=== PATIENT | male | born 1995 | race Caucasian/White ===

== ENCOUNTER 2018-08-24 12:48 | Emergency (ER) | payer OTHER ==
[2018-08-24 13:07] VITALS: BMI 29.2
--- NOTE | 2018-08-24 13:08 | ED PDOC ---
Arrival/HPI - General Time Seen by Provider: 08/24/18 12:50 Historian: Patient - History of Present Illness Narrative History of Present Illness (Text): 08/24/18 13:08 22 year old male, presents to the emergency department for psych evaluation. Patient states he is only here because "my parents think I'm crazy." As per ramy, who was present when patent was brought in, family was saying he was getting agitated at home. Patient states he does not want to be here, would like to go home. Of note, patient was presents in the emergency department for a psych evaluation on 04/11/14, he denies any psychiatric diagnosis. He denies any suicidal ideation, homicidal ideation, or any drug use. Patient has no somatic complaints at this time. Time/Duration: Prior to Arrival Symptom Onset: Gradual Symptom Course: Unchanged Activities at Onset: Light Context: Home Past Medical History - Provider Review Nursing Documentation Reviewed: Yes - Past History Past History: No Previous - Tetanus Immunization Tetanus Immunization: Up to Date - Cardiac Hx Hypertension: Yes (?) - Pulmonary Hx Tuberculosis: No - Neurological HX Cerebrovascular Accident: No Hx Seizures: No - Hematological/Oncological Hx Cancer: No - Genitourinary/Gynecological Hx Sexually Transmitted Diseases: No - Psychiatric Hx Substance Use: No - Surgical History Hx Tonsillectomy: Yes - Suicidal Assessment Feels Threatened In Home Enviroment: No Family/Social History - Physician Review Nursing Documentation Reviewed: Yes Family/Social History: No Known Family HX Smoking Status: Never Smoked Hx Alcohol Use: Yes Hx Substance Use: No Allergies/Home Meds Allergies/Adverse Reactions: Allergies No Known Allergies Allergy (Verified 12/12/16 19:48) Review of Systems - Review of Systems Constitutional: absent: Fevers Eyes: absent: Vision Changes ENT: absent: Hearing Changes, Sore Throat Respiratory: absent: SOB, Cough Cardiovascular: absent: Chest Pain Gastrointestinal: absent: Abdominal Pain, Diarrhea, Nausea, Vomiting Genitourinary Male: absent: Dysuria, Frequency Musculoskeletal: absent: Back Pain, Neck Pain Neurological: absent: Headache, Dizziness Endocrine: absent: Diaphoresis Hemo/Lymphatic: absent: Adenopathy Physical Exam Vital Signs Reviewed: Yes Vital Signs Temp Pulse Resp BP Pulse Ox 08/24/18 13:01 98.5 F 103 H 16 152/97 H 99 Temperature: Afebrile Blood Pressure: Hypertensive Pulse: Tachycardic Respiratory Rate: Normal Appearance: Positive for: Well-Appearing, Non-Toxic, Comfortable Pain Distress: None Mental Status: Positive for: Agitated - Systems Exam Head: Present: Atraumatic, Normocephalic Pupils: Present: PERRL Extroacular Muscles: Present: EOMI Conjunctiva: Present: Normal Mouth: Present: Moist Mucous Membranes Neck: Present: Normal Range of Motion Respiratory/Chest: Present: Clear to Auscultation, Good Air Exchange. No: Respiratory Distress, Accessory Muscle Use Cardiovascular: Present: Regular Rate and Rhythm, Normal S1, S2. No: Murmurs Abdomen: No: Tenderness, Distention, Peritoneal Signs Back: Present: Normal Inspection Upper Extremity: Present: Normal Inspection. No: Cyanosis, Edema Lower Extremity: Present: Normal Inspection. No: Edema Neurological: Present: GCS=15, CN II-XII Intact, Speech Normal Skin: Present: Warm, Dry, Normal Color. No: Rashes Psychiatric: Present: Alert, Oriented x 3, Agitated Medical Decision Making ED Course and Treatment: 08/24/18 13:08 Impression: 22 year old male who presents to the emergency department for psych evaluation. Plan: -- Labs -- EKG -- Chest X-ray -- Urinalysis -- Reassess and disposition Prior Visits: Notes and results from previous visits were reviewed. Progress Notes: 08/24/18 13:37 EKG shows NSR at 78bpm with incomplete RBBB. No somatic complaints 08/24/18 13:48 Chest X-ray reviewed shows: IMPRESSION: No active pulmonary disease. 08/24/18 14:58 Labs show elevated lfts. No complaint of abdominal pain. Elevated ck. IVF infusing. Patient evaluated by PES screener and will need to be screened by [facility] 08/24/18 17:28 CK elevated but decreasing after IV hydration and normal creatinine. Medically cleared pending psych 08/24/18 21:[address] sign out [address]. Lan as pending psych - Lab Interpretations I have reviewed the lab results: Yes - RAD Interpretation Radiology Orders: 08/24/18 13:04 CHEST PORTABLE [RAD] Stat - EKG Interpretation Interpreted by ED Physician: Yes Type: 12 lead EKG - Scribe Statement The provider has reviewed the documentation as recorded by the Scribe Emi Bebawy Provider Scribe Attestation: All medical record entries made by the Scribe were at my direction and personally dictated by me. I have reviewed the chart and agree that the record accurately reflects my personal performance of the history, physical exam, medical decision making, and the department course for this patient. I have also personally directed, reviewed, and agree with the discharge instructions and disposition. Disposition/Present on Arrival - Present on Arrival Any Indicators Present on Arrival: No History of DVT/PE: No History of Uncontrolled Diabetes: No Urinary Catheter: No History Surgical Site Infection Following: None - Disposition Have Diagnosis and Disposition been Completed?: No Diagnosis: Elevated LFTs, Elevated CK, Agitation Disposition Time: 21:00 Patient Problems: Current Active Problems Problem Status Onset Elevated LFTs Acute Elevated CK Acute Condition: FAIR Referrals: Oscar Ferrara MD [Primary Care Provider] - Follow up with primary
[2018-08-24 13:43] LABS: BASO # 0.03 K/mm3 (0.0-2.0); BASO % 0.5 % (0.0-3.0); EOS # 0.3 (0.0-0.7); EOS % 5.1 % (1.5-5.0); HEMOGLOBIN 15.3 g/dL (14.0-18.0); LYMPH # 1.5 (1.2-3.4); LYMPH % 25.9 % (22.0-35.0); MEAN CELL VOLUME 82.6 fl (80.0-105.0); MEAN CORPUSCULAR HEMOGLOBIN 29.2 pg (25.0-35.0); MEAN CORPUSCULAR HGB CONC 35.3 g/dl (31.0-37.0); MEAN PLATELET VOLUME 8.8 fl (7.0-11.0); MONO # 0.3 (0.1-0.6); MONO % 4.3 % (1.0-6.0); RBC 5.24 10^6/uL (3.5-6.1); RED CELL DISTRIBUTION WIDTH 12.7 % (11.5-14.5); WHITE BLOOD COUNT 5.8 10^3/uL (4.5-11.0)
--- NOTE | 2018-08-24 13:46 | RAD ---
Date of service: 08/24/2018 HISTORY: psych COMPARISON: 04/09/2013. FINDINGS: LUNGS: The lungs are well inflated and clear. PLEURA: No pleural effusions or pneumothorax. CARDIOVASCULAR: The heart is normal in size. No aortic atherosclerotic calcifications present. OSSEOUS STRUCTURES: Within normal limits for the patient's age. VISUALIZED UPPER ABDOMEN: Normal. OTHER FINDINGS: None. IMPRESSION: No active pulmonary disease.
[2018-08-24 13:50] LABS: ALB/GLOB RATIO 1.5 (1.1-1.8); ALBUMIN 4.8 g/dL (3.0-4.8); ALT/SGPT 134 U/L (7-56); AST/SGOT 108 U/L (17-59); BLOOD UREA NITROGEN 21 mg/dL (7-21); CALCIUM 9.7 mg/dL (8.4-10.5); GFR NON-AFRICAN AMERICAN > 60
[2018-08-24] MEDS ORDERED: Sodium Chloride 0.9% 1,000 ML IV STA ×3 (13:58→17:28)
[2018-08-24 14:07] LABS: CK-MB 1.6 ng/mL (0.0-3.6)
[2018-08-24 14:33] LABS: PH,URINE 6.5 (4.7-8.0); URINE BILIRUBIN NEGATIVE (NEGATIVE); URINE BLOOD NEGATIVE (NEGATIVE); URINE GLUCOSE (UA) NEGATIVE (NEGATIVE); URINE LEUKOCYTE ESTERASE NEGATIVE Leu/uL (NEGATIVE); URINE PROTEIN NEGATIVE mg/dL (<30 mg/dL); URINE UROBILINOGEN 0.2 E.U./dL (<1 E.U./dL)
[2018-08-24 14:35] LABS: URINE APPEARANCE CLEAR (CLEAR); URINE COLOR YELLOW (YELLOW)
[2018-08-24 15:02] LABS: BARBITURATES, UR NEGATIVE (NEGATIVE); BENZODIAZEPINES, UR NEGATIVE (NEGATIVE); OPIATES, UR NEGATIVE (NEGATIVE); PHENCYCLIDINE, UR NEGATIVE (NEGATIVE)
[2018-08-24 17:42] LABS: CK-MB 1.5 ng/mL (0.0-3.6)
[2018-08-24 20:15] LABS: CK-MB 1.5 ng/mL (0.0-3.6)
--- NOTE | 2018-08-24 22:08 | CARD ---
APPROVED REPORT Date of service: 08/24/2018 EKG Measurement Heart [id number] [id number] <Conclusion> Normal sinus rhythm Incomplete right bundle branch block Borderline ECG
--- NOTE | 2018-08-25 06:45 | ED PDOC ---
Physical Exam Vital Signs Temp Pulse Resp BP Pulse Ox 08/25/18 06:14 68 18 138/89 100 08/25/18 04:00 60 18 136/96 H 98 08/25/18 03:55 98.4 F 89 18 148/76 98 08/24/18 20:05 88 18 148/88 98 08/24/18 18:09 73 17 155/89 H 100 08/24/18 13:01 98.5 F 103 H 16 152/97 H 99 <Bret Lan - Last Filed: 08/25/18 06:42> Vital Signs Temp Pulse Resp BP Pulse Ox 08/25/18 06:14 68 18 138/89 100 08/25/18 04:00 60 18 136/96 H 98 08/25/18 03:55 98.4 F 89 18 148/76 98 08/24/18 20:05 88 18 148/88 98 08/24/18 18:09 73 17 155/89 H 100 08/24/18 13:01 98.5 F 103 H 16 152/97 H 99 <Shaka Pang - Last Filed: 08/25/18 18:44> Vital Signs Temp Pulse Resp BP Pulse Ox 08/26/18 04:02 97.8 F 86 18 131/70 98 08/25/18 22:00 90 18 130/76 99 08/25/18 18:00 75 18 127/74 99 08/25/18 14:24 98 F 79 19 129/82 99 08/25/18 11:30 98 F 61 20 128/73 99 08/25/18 11:12 98 F 86 19 132/56 L 99 08/25/18 10:15 98 F 72 18 129/73 100 08/25/18 10:00 98 F 71 19 132/59 L 100 08/25/18 09:00 75 18 125/69 98 08/25/18 07:53 98 F 77 18 128/73 98 08/25/18 06:14 68 18 138/89 100 08/25/18 04:00 60 18 136/96 H 98 08/25/18 03:55 98.4 F 89 18 148/76 98 08/24/18 20:05 88 18 148/88 98 08/24/18 18:09 73 17 155/89 H 100 08/24/18 13:01 98.5 F 103 H 16 152/97 H 99 <RichikrissyRishabh - Last Filed: 08/27/18 08:15> Medical Decision Making ED Course and Treatment: 08/25/18 02:54 Signout received by MARTIN Tuttle. Patient was screened by PES evaluated and committed to involuntary admission. Patient is pending [facility] bed placement and transport. 08/25/18 06:[address] Pang who will resume the patient's care. - Lab Interpretations Lab Results: Total Bilirubin 0.8 mg/dL (0.2-1.3) 08/24/18 13:30 AST 108 U/L (17-59) H 08/24/18 13:30 ALT 134 U/L (7-56) H 08/24/18 13:30 Alkaline Phosphatase 44 U/L (38-126) 08/24/18 13:30 Total Protein 8.1 g/dL (5.8-8.3) 08/24/18 13:30 Albumin 4.8 g/dL (3.0-4.8) 08/24/18 13:30 Globulin 3.3 gm/dL 08/24/18 13:30 Albumin/Globulin Ratio 1.5 (1.1-1.8) 08/24/18 13:30 Urine Color Yellow (YELLOW) 08/24/18 13:40 Urine Appearance Clear (CLEAR) 08/24/18 13:40 Urine pH 6.5 (4.7-8.0) 08/24/18 13:40 Ur Specific [place] 1.025 (1.005-1.035) 08/24/18 13:40 Urine Protein Negative mg/dL (<30 mg/dL) 08/24/18 13:40 Urine Glucose (UA) Negative mg/dL (NEGATIVE) 08/24/18 13:40 Urine Ketones Negative mg/dL (NEGATIVE) 08/24/18 13:40 Urine Blood Negative (NEGATIVE) 08/24/18 13:40 Urine Nitrate Negative (NEGATIVE) 08/24/18 13:40 Urine Bilirubin Negative (NEGATIVE) 08/24/18 13:40 Urine Urobilinogen 0.2 E.U./dL (<1 E.U./dL) 08/24/18 13:40 Ur Leukocyte Esterase Negative Clarissa/uL (NEGATIVE) 08/24/18 13:40 - RAD Interpretation Radiology Orders: 08/24/18 13:04 CHEST PORTABLE [RAD] Stat - Medication Orders Current Medication Orders: Discontinued Medications Sodium Chloride (Sodium Chloride 0.9%) 1,000 mls @ 999 mls/hr IV .Q1H1M STA Stop: 08/24/18 14:58 Last Admin: 08/24/18 15:16 Dose: 999 mls/hr eMAR Start Stop Document 08/24/18 15:16 MR (Rec: 08/24/18 15:16 [id number] Intravenous Solution Start Date 08/24/18 Start Time 15:16 End Date 08/24/18 End time 16:16 Total Infusion Time 60 Sodium Chloride (Sodium Chloride 0.9%) 1,000 mls @ 999 mls/hr IV .Q1H1M STA Stop: 08/24/18 15:59 Last Admin: 08/24/18 15:42 Dose: 999 mls/hr eMAR Start Stop Document 08/24/18 15:42 MR (Rec: 08/24/18 15:42 [id number] Intravenous Solution Start Date 08/24/18 Start Time 15:42 End Date 08/24/18 End time 16:42 Total Infusion Time 60 Sodium Chloride (Sodium Chloride 0.9%) 1,000 mls @ 999 mls/hr IV .Q1H1M STA Stop: 08/24/18 18:28 Last Admin: 08/24/18 18:20 Dose: 999 mls/hr eMAR Start Stop Document 08/24/18 18:20 MR (Rec: 08/24/18 18:20 [id number] Intravenous Solution Start Date 08/24/18 Start Time 18:20 End Date 08/24/18 End time 19:20 Total Infusion Time 60 Ibuprofen (Motrin Tab) 600 mg PO STAT STA Stop: 08/24/18 23:42 Last Admin: 08/24/18 23:59 Dose: 600 mg Lorazepam (Ativan) 1 mg PO ONCE ONE; Protocol Stop: 08/24/18 21:21 Last Admin: 08/25/18 00:20 Dose: Not Given Non-Admin Reason: pt refused Lorazepam (Ativan) 2 mg IM ONCE STA; Protocol Stop: 08/25/18 00:11 <Bret Lan - Last Filed: 08/25/18 06:42> ED Course and Treatment: 08/25/18 07:18 Patient was turned over to me by . It was reported that the patient has a psychiatric admission at [facility] and is waiting for a bed for transportation. He is up comfortable and in no distress. He is aware that he is waiting for transportation for a psychiatric bed at [facility]. 08/25/18 08:32 was here and saw the patient and requests that a consult be put in for her so that she may write orders. 08/25/18 18:42 Patient is still waiting for an admission bed at [facility]. He has been comfortable all day. - Lab Interpretations Lab Results: Total Bilirubin 0.8 mg/dL (0.2-1.3) 08/24/18 13:30 AST 108 U/L (17-59) H 08/24/18 13:30 ALT 134 U/L (7-56) H 08/24/18 13:30 Alkaline Phosphatase 44 U/L (38-126) 08/24/18 13:30 Total Protein 8.1 g/dL (5.8-8.3) 08/24/18 13:30 Albumin 4.8 g/dL (3.0-4.8) 08/24/18 13:30 Globulin 3.3 gm/dL 08/24/18 13:30 Albumin/Globulin Ratio 1.5 (1.1-1.8) 08/24/18 13:30 Urine Color Yellow (YELLOW) 08/24/18 13:40 Urine Appearance Clear (CLEAR) 08/24/18 13:40 Urine pH 6.5 (4.7-8.0) 08/24/18 13:40 Ur Specific [place] 1.025 (1.005-1.035) 08/24/18 13:40 Urine Protein Negative mg/dL (<30 mg/dL) 08/24/18 13:40 Urine Glucose (UA) Negative mg/dL (NEGATIVE) 08/24/18 13:40 Urine Ketones Negative mg/dL (NEGATIVE) 08/24/18 13:40 Urine Blood Negative (NEGATIVE) 08/24/18 13:40 Urine Nitrate Negative (NEGATIVE) 08/24/18 13:40 Urine Bilirubin Negative (NEGATIVE) 08/24/18 13:40 Urine Urobilinogen 0.2 E.U./dL (<1 E.U./dL) 08/24/18 13:40 Ur Leukocyte Esterase Negative Clarissa/uL (NEGATIVE) 08/24/18 13:40 - RAD Interpretation Radiology Orders: 08/24/18 13:04 CHEST PORTABLE [RAD] Stat - Medication Orders Current Medication Orders: Discontinued Medications Sodium Chloride (Sodium Chloride 0.9%) 1,000 mls @ 999 mls/hr IV .Q1H1M STA Stop: 08/24/18 14:58 Last Admin: 08/24/18 15:16 Dose: 999 mls/hr eMAR Start Stop Document 08/24/18 15:16 MR (Rec: 08/24/18 15:16 MR [id number]) Intravenous Solution Start Date 08/24/18 Start Time 15:16 End Date 08/24/18 End time 16:16 Total Infusion Time 60 Sodium Chloride (Sodium Chloride 0.9%) 1,000 mls @ 999 mls/hr IV .Q1H1M STA Stop: 08/24/18 15:59 Last Admin: 08/24/18 15:42 Dose: 999 mls/hr eMAR Start Stop Document 08/24/18 15:42 MR (Rec: 08/24/18 15:42 MR [id number]) Intravenous Solution Start Date 08/24/18 Start Time 15:42 End Date 08/24/18 End time 16:42 Total Infusion Time 60 Sodium Chloride (Sodium Chloride 0.9%) 1,000 mls @ 999 mls/hr IV .Q1H1M STA Stop: 08/24/18 18:28 Last Admin: 08/24/18 18:20 Dose: 999 mls/hr eMAR Start Stop Document 08/24/18 18:20 MR (Rec: 08/24/18 18:20 MR [id number]) Intravenous Solution Start Date 08/24/18 Start Time 18:20 End Date 08/24/18 End time 19:20 Total Infusion Time 60 Ibuprofen (Motrin Tab) 600 mg PO STAT STA Stop: 08/24/18 23:42 Last Admin: 08/24/18 23:59 Dose: 600 mg Lorazepam (Ativan) 1 mg PO ONCE ONE; Protocol Stop: 08/24/18 21:21 Last Admin: 08/25/18 00:20 Dose: Not Given Non-Admin Reason: pt refused Lorazepam (Ativan) 2 mg IM ONCE STA; Protocol Stop: 08/25/18 00:11 <Shaka Pang - Last Filed: 08/25/18 18:44> - Lab Interpretations Lab Results: Total Bilirubin 0.8 mg/dL (0.2-1.3) 08/24/18 13:30 AST 61 U/L (17-59) H D 08/25/18 14:32 ALT 97 U/L (7-56) H 08/25/18 14:32 Alkaline Phosphatase 44 U/L (38-126) 08/24/18 13:30 Total Protein 8.1 g/dL (5.8-8.3) 08/24/18 13:30 Albumin 4.8 g/dL (3.0-4.8) 08/24/18 13:30 Globulin 3.3 gm/dL 08/24/18 13:30 Albumin/Globulin Ratio 1.5 (1.1-1.8) 08/24/18 13:30 Urine Color Yellow (YELLOW) 08/24/18 13:40 Urine Appearance Clear (CLEAR) 08/24/18 13:40 Urine pH 6.5 (4.7-8.0) 08/24/18 13:40 Ur Specific [place] 1.025 (1.005-1.035) 08/24/18 13:40 Urine Protein Negative mg/dL (<30 mg/dL) 08/24/18 13:40 Urine Glucose (UA) Negative mg/dL (NEGATIVE) 08/24/18 13:40 Urine Ketones Negative mg/dL (NEGATIVE) 08/24/18 13:40 Urine Blood Negative (NEGATIVE) 08/24/18 13:40 Urine Nitrate Negative (NEGATIVE) 08/24/18 13:40 Urine Bilirubin Negative (NEGATIVE) 08/24/18 13:40 Urine Urobilinogen 0.2 E.U./dL (<1 E.U./dL) 08/24/18 13:40 Ur Leukocyte Esterase Negative Clarissa/uL (NEGATIVE) 08/24/18 13:40 - RAD Interpretation Radiology Orders: 08/24/18 13:04 CHEST PORTABLE [RAD] Stat - Medication Orders Current Medication Orders: Lorazepam (Ativan) 2 mg IM Q6 PRN; Protocol PRN Reason: Agitation Last Admin: 08/26/18 01:38 Dose: 2 mg IM Administration Charges Document 08/26/18 01:38 EB (Rec: 08/26/18 01:38 EB [id number]) Injection Site MAR Injection Site Left Deltoid Charges for Administration # of IM Administrations 1 Olanzapine (Zyprexa Zydis) 5 mg PO AMHS PAUL; Protocol Last Admin: 08/25/18 22:43 Dose: 5 mg Ziprasidone (Geodon Inj) 20 mg IM Q6H PRN; Protocol PRN Reason: severe agitaiton/psychosis Last Admin: 08/25/18 10:00 Dose: 20 mg IM Administration Charges Document 08/25/18 10:00 GMI (Rec: 08/25/18 10:15 GMI [id number]) Injection Site MAR Injection Site Right Deltoid Charges for Administration # of IM Administrations 1 Discontinued Medications Sodium Chloride (Sodium Chloride 0.9%) 1,000 mls @ 999 mls/hr IV .Q1H1M STA Stop: 08/24/18 14:58 Last Admin: 08/24/18 15:16 Dose: 999 mls/hr eMAR Start Stop Document 08/24/18 15:16 MR (Rec: 08/24/18 15:16 MR [id number]) Intravenous Solution Start Date 08/24/18 Start Time 15:16 End Date 08/24/18 End time 16:16 Total Infusion Time 60 Sodium Chloride (Sodium Chloride 0.9%) 1,000 mls @ 999 mls/hr IV .Q1H1M STA Stop: 08/24/18 15:59 Last Admin: 08/24/18 15:42 Dose: 999 mls/hr eMAR Start Stop Document 08/24/18 15:42 MR (Rec: 08/24/18 15:42 MR [id number]) Intravenous Solution Start Date 08/24/18 Start Time 15:42 End Date 08/24/18 End time 16:42 Total Infusion Time 60 Sodium Chloride (Sodium Chloride 0.9%) 1,000 mls @ 999 mls/hr IV .Q1H1M STA Stop: 08/24/18 18:28 Last Admin: 08/24/18 18:20 Dose: 999 mls/hr eMAR Start Stop Document 08/24/18 18:20 MR (Rec: 08/24/18 18:20 MR [id number]) Intravenous Solution Start Date 08/24/18 Start Time 18:20 End Date 08/24/18 End time 19:20 Total Infusion Time 60 Ibuprofen (Motrin Tab) 600 mg PO STAT STA Stop: 08/24/18 23:42 Last Admin: 08/24/18 23:59 Dose: 600 mg Re-Assess: MAR Pain/Vitals Document 08/25/18 00:59 GMI (Rec: 08/25/18 07:27 GMI [id number]) Pain Reassessment Is This A Pain ReAssessment? Yes Sleep Is patient sleeping during reassessment? No Presence of Pain Presence of Pain No Lorazepam (Ativan) 1 mg PO ONCE ONE; Protocol Stop: 08/24/18 21:21 Last Admin: 08/25/18 00:20 Dose: Not Given Non-Admin Reason: pt refused Lorazepam (Ativan) 2 mg IM ONCE STA; Protocol Stop: 08/25/18 00:11 Last Admin: 08/25/18 10:00 Dose: 2 mg IM Administration Charges Document 08/25/18 10:00 GMI (Rec: 08/25/18 10:16 GMI [id number]) Injection Site MAR Injection Site Right Deltoid Charges for Administration # of IM Administrations 1 <Rishabh Evans - Last Filed: 08/27/18 08:15> Disposition/Present on Arrival - Present on Arrival Any Indicators Present on Arrival: No History of DVT/PE: No History of Uncontrolled Diabetes: No Urinary Catheter: No History of Decub. Ulcer: No History Surgical Site Infection Following: None <Bret Lan - Last Filed: 08/25/18 06:42> - Present on Arrival Any Indicators Present on Arrival: No History of DVT/PE: No History of Uncontrolled Diabetes: No Urinary Catheter: No History of Decub. Ulcer: No - Disposition Have Diagnosis and Disposition been Completed?: Yes Patient Plan: Transfer To <Shaka Pang - Last Filed: 08/25/18 18:44> - Present on Arrival Any Indicators Present on Arrival: No - Disposition Have Diagnosis and Disposition been Completed?: Yes Disposition Time: 18:00 <Rishabh Evans Last Filed: 08/27/18 08:15> - Disposition Diagnosis: Elevated LFTs, Elevated CK, Agitation Disposition: HOSPITALIZED Condition: FAIR Additional Instructions: You need outpatient evaluation of elevated lfts Referrals: Oscar Ferrara MD [Primary Care Provider] - Follow up with primary Forms: [employer] ([place])
[2018-08-25] MEDS: OLANZapine 5 mg Disintegrating Tab PO SCH ×2 (10:16→22:43)
--- NOTE | 2018-08-25 12:01 | CON ---
DATE OF CONSULTATION: 08/25/2018 HISTORY OF PRESENT ILLNESS: In short, the patient is a 22-year-old male with reported history of psychosis. The patient was brought in for psychiatric evaluation. The patient stated in the emergency room that his parents think that he is crazy. The patient was agitated at home. During the evaluation by PAS worker, the patient presented to be guarded. The patient has long history of psychosis. Last time the patient was evaluated in the emergency room in 2013. The patient was screened by [facility] and was accepted there. The patient stayed under involuntary status for 1 month at [facility] as per PAS report. This field underwriter suggested [facility] screening process because the patient did not want to stay in the hospital and has no insight into his mental illness. The patient was screened overnight and the patient was accepted for screening and at present moment the patient is waiting for bed to be available at [facility]. The patient was seen today as per emergency room physician's request during this field underwriter's morning round in the emergency room. The patient presented to be guarded, appears to be paranoid. The patient has no insight into his mental illness. The patient said that he does not want to take any medications. The patient is aware that he is going to [facility], and as per report, the patient was agitated at home. The patient was not sleeping. The patient experienced grandiose delusions back in 2013 as per family. The patient was not forthcoming with information. VITAL SIGNS: Reviewed. Temperature 98.0, pulse 77, blood pressure 128/73, respirations 18, oxygen saturation is 98. MEDICATIONS: Reviewed. The patient refused to take any of medication in the emergency room. LABS: Reviewed. Chemistry reviewed. Total creatine kinase is elevated, but is trending down. Urinalysis reviewed. Toxicology is negative. MENTAL STATUS EXAMINATION: As this field underwriter described above. The patient presented with acceptable personal hygiene, but seems to be careless about his appearance. Intense eye contact. Flat affect. Mood described "I am fine." Thought process very concrete. Thought content, the patient obviously guarded and paranoid, but denied any hallucinations. Insight and judgment seems to be poor. Impulses are unpredictable. IMPRESSION: As per history, the patient has bipolar disorder versus schizoaffective disorder back in 2013. The patient presented to be bizarre as well as was feeling that his soul was changed as well as that the patient was possessed by the devil. 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 PLAN: The patient made it clear that he does not want to take any medications, but this field underwriter would suggest only as-needed medication, Geodon and Ativan, but it could be done as by medical team in the emergency room as well, so the patient is waiting for [facility] bed to be available. Meanwhile, the patient is not agitated, not aggressive. The patient is high elopement risk. Should you have any questions, give me a call back. Renae Arthur MD
[2018-08-25 15:05] LABS: CK-MB 1.3 ng/mL (0.0-3.6)
--- NOTE | 2018-08-26 07:25 | ED PDOC ---
Physical Exam Vital Signs Temp Pulse Resp BP Pulse Ox 08/26/18 04:02 97.8 F 86 18 131/70 98 08/25/18 22:00 90 18 130/76 99 08/25/18 18:00 75 18 127/74 99 08/25/18 14:24 98 F 79 19 129/82 99 08/25/18 11:30 98 F 61 20 128/73 99 08/25/18 11:12 98 F 86 19 132/56 L 99 08/25/18 10:15 98 F 72 18 129/73 100 08/25/18 10:00 98 F 71 19 132/59 L 100 08/25/18 09:00 75 18 125/69 98 08/25/18 07:53 98 F 77 18 128/73 98 08/25/18 06:14 68 18 138/89 100 08/25/18 04:00 60 18 136/96 H 98 08/25/18 03:55 98.4 F 89 18 148/76 98 08/24/18 20:05 88 18 148/88 98 08/24/18 18:09 73 17 155/89 H 100 08/24/18 13:01 98.5 F 103 H 16 152/97 H 99 Medical Decision Making ED Course and Treatment: 08/26/18 07:00 Case endorsed to me by Dr. Lan. Currently awaiting [facility] [place] bed availability. 08/27/18 08:16 pt in nad in er. transport team arrived. pt no complaint. transported. - Lab Interpretations Lab Results: Total Bilirubin 0.8 mg/dL (0.2-1.3) 08/24/18 13:30 AST 61 U/L (17-59) H D 08/25/18 14:32 ALT 97 U/L (7-56) H 08/25/18 14:32 Alkaline Phosphatase 44 U/L (38-126) 08/24/18 13:30 Total Protein 8.1 g/dL (5.8-8.3) 08/24/18 13:30 Albumin 4.8 g/dL (3.0-4.8) 08/24/18 13:30 Globulin 3.3 gm/dL 08/24/18 13:30 Albumin/Globulin Ratio 1.5 (1.1-1.8) 08/24/18 13:30 Urine Color Yellow (YELLOW) 08/24/18 13:40 Urine Appearance Clear (CLEAR) 08/24/18 13:40 Urine pH 6.5 (4.7-8.0) 08/24/18 13:40 Ur Specific Murphy 1.025 (1.005-1.035) 08/24/18 13:40 Urine Protein Negative mg/dL (<30 mg/dL) 08/24/18 13:40 Urine Glucose (UA) Negative mg/dL (NEGATIVE) 08/24/18 13:40 Urine Ketones Negative mg/dL (NEGATIVE) 08/24/18 13:40 Urine Blood Negative (NEGATIVE) 08/24/18 13:40 Urine Nitrate Negative (NEGATIVE) 08/24/18 13:40 Urine Bilirubin Negative (NEGATIVE) 08/24/18 13:40 Urine Urobilinogen 0.2 E.U./dL (<1 E.U./dL) 08/24/18 13:40 Ur Leukocyte Esterase Negative Clarissa/uL (NEGATIVE) 08/24/18 13:40 - RAD Interpretation Radiology Orders: 08/24/18 13:04 CHEST PORTABLE [RAD] Stat - Medication Orders Current Medication Orders: Lorazepam (Ativan) 2 mg IM Q6 PRN; Protocol PRN Reason: Agitation Last Admin: 08/26/18 01:38 Dose: 2 mg IM Administration Charges Document 08/26/18 01:38 EB (Rec: 08/26/18 01:38 EB [id number] Injection Site MAR Injection Site Left Deltoid Charges for Administration # of IM Administrations 1 Olanzapine (Zyprexa Zydis) 5 mg PO AMHS PAUL; Protocol Last Admin: 08/25/18 22:43 Dose: 5 mg Ziprasidone (Geodon Inj) 20 mg IM Q6H PRN; Protocol PRN Reason: severe agitaiton/psychosis Last Admin: 08/25/18 10:00 Dose: 20 mg IM Administration Charges Document 08/25/18 10:00 GMI (Rec: 08/25/18 10:15 GMI [id number]) Injection Site MAR Injection Site Right Deltoid Charges for Administration # of IM Administrations 1 Discontinued Medications Sodium Chloride (Sodium Chloride 0.9%) 1,000 mls @ 999 mls/hr IV .Q1H1M STA Stop: 08/24/18 14:58 Last Admin: 08/24/18 15:16 Dose: 999 mls/hr eMAR Start Stop Document 08/24/18 15:16 MR (Rec: 08/24/18 15:16 MR [id number]) Intravenous Solution Start Date 08/24/18 Start Time 15:16 End Date 08/24/18 End time 16:16 Total Infusion Time 60 Sodium Chloride (Sodium Chloride 0.9%) 1,000 mls @ 999 mls/hr IV .Q1H1M STA Stop: 08/24/18 15:59 Last Admin: 08/24/18 15:42 Dose: 999 mls/hr eMAR Start Stop Document 08/24/18 15:42 MR (Rec: 08/24/18 15:42 MR [id number]) Intravenous Solution Start Date 08/24/18 Start Time 15:42 End Date 08/24/18 End time 16:42 Total Infusion Time 60 Sodium Chloride (Sodium Chloride 0.9%) 1,000 mls @ 999 mls/hr IV .Q1H1M STA Stop: 08/24/18 18:28 Last Admin: 08/24/18 18:20 Dose: 999 mls/hr eMAR Start Stop Document 08/24/18 18:20 MR (Rec: 08/24/18 18:20 MR [id number]) Intravenous Solution Start Date 08/24/18 Start Time 18:20 End Date 08/24/18 End time 19:20 Total Infusion Time 60 Ibuprofen (Motrin Tab) 600 mg PO STAT STA Stop: 08/24/18 23:42 Last Admin: 08/24/18 23:59 Dose: 600 mg Re-Assess: KASHIF Pain/Vitals Document 08/25/18 00:59 GMI (Rec: 08/25/18 07:27 GMI [id number]) Pain Reassessment Is This A Pain ReAssessment? Yes Sleep Is patient sleeping during reassessment? No Presence of Pain Presence of Pain No Lorazepam (Ativan) 1 mg PO ONCE ONE; Protocol Stop: 08/24/18 21:21 Last Admin: 08/25/18 00:20 Dose: Not Given Non-Admin Reason: pt refused Lorazepam (Ativan) 2 mg IM ONCE STA; Protocol Stop: 08/25/18 00:11 Last Admin: 08/25/18 10:00 Dose: 2 mg IM Administration Charges Document 08/25/18 10:00 GMI (Rec: 08/25/18 10:16 GMI [id number]) Injection Site MAR Injection Site Right Deltoid Charges for Administration # of IM Administrations 1 - Scribe Statement The provider has reviewed the documentation as recorded by the Courtney Sexton Provider Scribe Attestation: All medical record entries made by the Scribe were at my direction and personally dictated by me. I have reviewed the chart and agree that the record accurately reflects my personal performance of the history, physical exam, medical decision making, and the department course for this patient. I have also personally directed, reviewed, and agree with the discharge instructions and disposition. Disposition/Present on Arrival - Present on Arrival Any Indicators Present on Arrival: No History of DVT/PE: No History of Uncontrolled Diabetes: No Urinary Catheter: No History of Decub. Ulcer: No History Surgical Site Infection Following: None - Disposition Have Diagnosis and Disposition been Completed?: Yes Diagnosis: Elevated LFTs, Elevated CK, Agitation, Schizoaffective disorder Disposition: HOSPITALIZED Disposition Time: 18:00 Condition: FAIR Additional Instructions: You need outpatient evaluation of elevated lfts Referrals: Oscar Ferrara MD [Primary Care Provider] - Follow up with primary Forms: [employer] (Ugandan)
[2018-08-26] MEDS: OLANZapine 5 mg Disintegrating Tab PO SCH (11:00)
--- NOTE | 2018-08-26 13:42 | PN ---
DATE: 08/26/2018 SUBJECTIVE: The patient was seen again in the emergency room. The patient presented to be guarded and paranoid. The patient refused to take any medications. The patient said that this is his right to refuse medication. The patient asked when he will be transferred back to [facility]. The patient has intermittent episodes of agitation for what patient was medicated with Geodon on 08/25/2018. Labs reviewed. Discussed with staff. MENTAL STATUS EXAM: The patient appears to be alert, guarded, appear to be paranoid, superficially cooperative. Mood described as I am fine. I want to go home. Thought process seems to be concrete. Thought content, the patient obviously disorganized and paranoid, but denied hearing voices or seeing things. Insight and judgment seems to be limited. Impulses are not predictable. IMPRESSION: As per history, psychotic spectrum disorder. PLAN: Continue current management. Continue current medications. The patient will be transferred to [facility] whenever bed is available. Thank you very much for letting me to participate in care of your patient. Renae Arthur MD
[2018-08-26 14:57] VITALS: O2SAT 99
[2018-08-26 16:44] VITALS: RESP 18; TEMP 98.6
[2018-08-26 18:19] VITALS: BP 133/62; PULSE 86
--- NOTE | 2018-08-27 12:28 | CP.PCM.PCO ---
Physician Communication Note - Physician Communication Note Physician Communication Note: [place] [facility] [place]
== END 2018-08-26 18:47 | disposition short-term general hospital (02) ==
LOC: ED 12:48
DX: R79.89 Other specified abnormal findings of blood chemistry (principal); R45.1 Restlessness and agitation; F25.9 Schizoaffective disorder, unspecified
CPT/HCPCS: 71045; 80053; 80320; 80324; 80345; 80346; 80349; 80353; 80358; 80361; 81003; 82550; 82553; 83992; 84450; 84460; 85025; 90791; 93005; 96360; 96361; 96372; 99285; J2060; J3486; J7030